=== PATIENT | female | born 1955 | race African-American/Black ===

== ENCOUNTER 2017-10-29 18:11 | Emergency (ER) | payer SELFPAY ==
[~2017-10-29] VITALS: Ht 157.5 cm; Wt 57.0 kg
[2017-10-29] MEDS ORDERED: KETOROLAC 15MG/ML VIAL IV ONE (23:30)
[2017-10-29] MEDS ORDERED: SODIUM CHLORIDE 0.9% 500 ML IV ONE (23:30)
[2017-10-29 23:52] LABS: CHLORIDE 101 mEq/L (98-107)
[2017-10-29 23:55] LABS: INR 1.4; PROTHROMBIN TIME 14.7 sec (9.4-11.6)
[2017-10-30] LABS: CARBON DIOXIDE 24 mEq/L (21-32)
[2017-10-30 00:04] LABS: HEMATOCRIT. 37.6 % (36.0-48.0); HEMOGLOBIN. 12.2 g/dL (12.0-16.0); MEAN CORPUSCULAR VOLUME 83.1 fL (81.0-99.0); MEAN PLATELET VOLUME 7.7 fl (7.4-10.4); PLATELET 309 x1000/uL (130-400); RED BLOOD CELL COUNT 4.52 mill/uL (4.2-5.4); RED CELL DISTRIBUTION WIDTH 14.8 % (11.6-14.6)
[2017-10-30 01:15] LABS: CLARITY URINE CLEAR (CLEAR); COLOR URINE DARK YELLOW (YELLOW); KETONES URINE 1+ (NEGATIVE); LEUKOCYTE ESTERASE URINE TRACE (NEGATIVE); NITRITE URINE NEGATIVE (NEGATIVE); OCCULT BLOOD URINE NEGATIVE (NEGATIVE); PROTEIN URINE 1+ (NEGATIVE); SPECIFIC GRAVITY URINE 1.026 (1.005-1.030)
[2017-10-30] MEDS ORDERED: ACETAMINOPHEN 500MG TABLET PO ONE (02:00)
[2017-10-30 02:20] LABS: PLATELET ESTIMATE NORMAL
[2017-10-30 02:47] VITALS: BP 134/71
== END 2017-10-30 03:02 | disposition home or self-care (01) ==
LOC: ER 18:44
DX: R05 Cough (principal); N39.0 Urinary tract infection, site not specified; N20.0 Calculus of kidney; F17.200 Nicotine dependence, unspecified, uncomplicated
CPT/HCPCS: 36415; 76700; 80053; 81001; 83690; 85025; 85610; 96361; 96374; 99285; J1885; J7040; Z7610